=== PATIENT | male | born 1960 | race Hispanic/Latino ===

== ENCOUNTER 2016-10-31 20:28 | Observation (INO) | payer SELFPAY ==
[2016-10-31 20:02] VITALS: BMI 20.5
[2016-10-31 20:51] VITALS: TEMP 98.2
--- NOTE | 2016-10-31 21:15 | ED PDOC ---
Arrival/HPI - General Chief Complaint: Alcohol Ingestion Time Seen by Provider: 10/31/16 20:57 Historian: Patient - History of Present Illness Narrative History of Present Illness (Text): 10/31/16 21:14 Dony Nieto is a 56 year old male, whose past medical history includes alcohol abuse, who presents to the Emergency department for alcohol intoxication. Patient admits to drinking a few beers tonight, states he tripped and fell while walking. Patient reports a left shoulder skin abrasion but denies any left shoulder pain, weakness, or tingling. Patient is able to move and lift his arms without difficulty. Patient denies any head trauma/injury, loss of consciousness, chest pain, shortness of breath, back pain, neck pain, headache, dizziness, or any other complaints. Time/Duration: Other (tonight) Symptom Onset: Gradual Symptom Course: Unchanged Activities at Onset: Rest, Light Past Medical History - Provider Review Nursing Documentation Reviewed: Yes - Infectious Disease Hx of Infectious Diseases: None - Cardiac Hx Hypertension: Yes - Musculoskeletal/Rheumatological Hx Falls: Yes - Psychiatric Hx Substance Use: No - Anesthesia Hx Anesthesia: Yes Hx Anesthesia Reactions: No Hx Malignant Hyperthermia: No Family/Social History - Physician Review Nursing Documentation Reviewed: Yes Family/Social History: Unknown Family HX Smoking Status: Heavy Smoker > 10 Cigarettes Daily Hx Alcohol Use: Yes ("6 Pack a day") Hx Substance Use: No Allergies/Home Meds Allergies/Adverse Reactions: Allergies No Known Allergies Allergy (Verified 12/15/14 11:56) Review of Systems - Physician Review All systems were reviewed & negative as marked: Yes - Review of Systems Constitutional: Normal. absent: Fevers Eyes: Normal ENT: Normal Respiratory: Normal. absent: SOB, Cough Cardiovascular: Normal. absent: Chest Pain Gastrointestinal: Normal. absent: Abdominal Pain, Diarrhea, Nausea, Vomiting Genitourinary Male: Normal. absent: Dysuria, Frequency, Hematuria, Urinary Output Changes Musculoskeletal: Normal. absent: Back Pain, Neck Pain Skin: Other (+left shoulder abrasino) Neurological: Normal Endocrine: Normal Hemo/Lymphatic: Normal Psychiatric: Other (+alcohol use) Physical Exam Vital Signs Reviewed: Yes Vital Signs Temp Pulse Resp BP Pulse Ox 10/31/16 22:02 95 H 16 139/81 93 L 10/31/16 20:02 98.2 F 98 H 18 150/98 H 96 Temperature: Afebrile Blood Pressure: Normal Pulse: Regular Respiratory Rate: Normal Appearance: Positive for: Well-Appearing, Non-Toxic, Comfortable Pain Distress: None Mental Status: Positive for: Alert and Oriented X 3 - Systems Exam Head: Present: Atraumatic, Normocephalic Pupils: Present: PERRL Extroacular Muscles: Present: EOMI Conjunctiva: Present: Normal Mouth: Present: Moist Mucous Membranes Neck: Present: Normal Range of Motion Respiratory/Chest: Present: Clear to Auscultation, Good Air Exchange. No: Respiratory Distress, Accessory Muscle Use Cardiovascular: Present: Regular Rate and Rhythm, Normal S1, S2. No: Murmurs Abdomen: Present: Normal Bowel Sounds. No: Tenderness, Distention, Peritoneal Signs Back: Present: Normal Inspection Upper Extremity: Present: Normal ROM, NORMAL PULSES, Neurovascularly Intact, Capillary Refill < 2s, Other (Left shoulder skin avulsion/abrasion). No: Cyanosis, Edema, Tenderness, Swelling, Erythema, Temperature Abnormalties, Deformity Lower Extremity: Present: Normal Inspection. No: Edema Neurological: Present: GCS=15, CN II-XII Intact, Speech Normal Skin: Present: Warm, Dry, Normal Color. No: Rashes Psychiatric: Present: Alert, Oriented x 3, Normal Insight, Normal Concentration Medical Decision Making ED Course and Treatment: 10/31/16 21:15 Impression: 56 year old male brought in for alcohol abuse. Reports a left arm skin abrasion. Plan: -- Reassess and disposition ED OBSERVATION Discharge: Yes Date of observation admission: 10/31/16 Time of observation admission: 21:15 - Observation admission statement Patient is being placed in observation because:: alcohol abuse - Goals of Observation Goals of observation are:: sobriety, observe for signs of withdrawal - Progress Note Progress Note: 10/31/16 21:15 Pt resting comfortably, in no acute distress. Left shoulder skin avulsion/ abrasion wound was cleaned with NS, covered with bacitracin. The site was dressed with clean, dry, sterile dressing. Will observe pending sobriety. 10/31/16 23:15 Pt resting comfortably, in no acute distress. 11/01/16 00:50 Pt awake, alert, ambulating with steady gait. Denies any complaints. Pt stable for d/c. - Scribe Statement The provider has reviewed the documentation as recorded by the Ivaibtate Capps All medical record entries made by the Ivaibtate were at my direction and personally dictated by me. I have reviewed the chart and agree that the record accurately reflects my personal performance of the history, physical exam, medical decision making, and the department course for this patient. I have also personally directed, reviewed, and agree with the discharge instructions and disposition. Disposition/Present on Arrival - Present on Arrival Any Indicators Present on Arrival: No History of DVT/PE: No History of Uncontrolled Diabetes: No Urinary Catheter: No History of Decub. Ulcer: No History Surgical Site Infection Following: None - Disposition Have Diagnosis and Disposition been Completed?: Yes Diagnosis: Alcohol intoxication Disposition: HOME/ ROUTINE Disposition Time: 00:50 Patient Plan: Discharge Condition: GOOD
[2016-10-31 22:27] VITALS: BP 139/81; PULSE 95; RESP 16; O2SAT 93
== END 2016-11-01 00:48 | disposition home or self-care (01) ==
LOC: ED 20:28 → EROBSV 21:15
PROVIDERS: ADMIT Emergency Medicine; ATTEND Emergency Medicine
DX: F10.129 Alcohol abuse with intoxication, unspecified (principal); F17.210 Nicotine dependence, cigarettes, uncomplicated
CPT/HCPCS: 99282; G0378